=== PATIENT | female | born 1935 | race Caucasian/White ===

== ENCOUNTER → 2019-03-12 | Outpatient (REF) | payer MEDICARE, OTHER | LOC: M LAB LCGH 15:38 | PROVIDERS: ATTEND Surgery | DX: K81.1 Chronic cholecystitis (principal) ==

== ENCOUNTER → 2019-05-13 | Outpatient (REF) | LOC: M LAB LCGH 14:28 | PROVIDERS: ATTEND Physician Assistant | DX: D48.5 Neoplasm of uncertain behavior of skin (principal) ==

== ENCOUNTER → 2019-07-05 | Outpatient (REF) | LOC: M LAB LCGH 15:21 | PROVIDERS: ATTEND Surgery | DX: K21.9 Gastro-esophageal reflux disease without esophagitis (principal) ==